=== PATIENT | female | born 1975 | race Two or more races ===

== ENCOUNTER 2018-09-06 13:17 | Emergency (ER) | payer SELFPAY ==
[~2018-09-06] VITALS: Ht 157.5 cm; Wt 71.7 kg
[2018-09-06 13:28] VITALS: BP 119/76
== END 2018-09-06 14:05 | disposition home or self-care (01) ==
LOC: ER 13:18
DX: E07.9 Disorder of thyroid, unspecified (principal); E23.7 Disorder of pituitary gland, unspecified; E22.1 Hyperprolactinemia; E03.9 Hypothyroidism, unspecified; Z76.0 Encounter for issue of repeat prescription
CPT/HCPCS: 99283; A4606

== ENCOUNTER 2019-05-04 20:09 | Emergency (ER) | payer SELFPAY ==
[~2019-05-04] VITALS: Ht 157.5 cm; Wt 74.5 kg
[2019-05-04 20:12] VITALS: BP 144/75
[2019-05-04] MEDS ORDERED: FAMOTIDINE (20 MG) 20 MG TABLET PO ONE (20:30)
[2019-05-04] MEDS ORDERED: predniSONE 50 MG TABLET PO ONE (20:30)
[2019-05-04] MEDS ORDERED: predniSONE 20 MG TABLET ONE (20:31)
[2019-05-04] MEDS ORDERED: predniSONE 10 MG TABLET ONE (20:31)
[2019-05-04] MEDS ORDERED: FAMOTIDINE (20 MG) 20 MG TABLET ONE (20:31)
== END 2019-05-04 22:08 | disposition home or self-care (01) ==
LOC: ER 20:11
DX: R21 Rash and other nonspecific skin eruption (principal); T45.2X5A Adverse effect of vitamins, initial encounter; E22.1 Hyperprolactinemia; E03.9 Hypothyroidism, unspecified; Y92.89 Other specified places as the place of occurrence of the external cause